=== PATIENT | male | born 1940 | race Caucasian/White ===

== ENCOUNTER 2017-03-03 09:00 | Outpatient (RCR) | payer MEDICARE ==
[~2017-03-03 09:00] MED LIST: ACET500T68 PO; AMOX-556 PO; AZIT-17 PO; CEPH500C24 PO; CHOL200074 PO; CITA-139 PO; CYCL-277 PO; FLU45SYR17 IM; FLUT16SP19 NS; FOLI-68 PO; GLUC100026 PO; IBUP-56 PO; IPRA3AMP21 IH; LEVO-85 PO; LISI5TAB25 PO; LUTE20TA PO; NAPR220T86 PO; OMEG-11 PO; OMEP-125 PO; OXYGENHOME INH; PNEU0.5D3 IM; PRED20TA6 PO; RANI-318 PO; VITA-198 PO
[2017-03-07] MEDS ORDERED: CLIN300C99 PO ×2 (15:47→15:56)
[2017-03-08] MEDS ORDERED: PRED20TA6 PO (14:39)
[2017-03-08] MEDS ORDERED: HYDR-385 PO (14:42)
[2017-03-16] MEDS ORDERED: PRED20TA6 PO (14:06)
== END 2017-03-16 ==
LOC: RESP 09:00
PROVIDERS: ATTEND Internal Medicine
DX: R09.02 Hypoxemia (principal); J84.9 Interstitial pulmonary disease, unspecified
CPT/HCPCS: 94618; G0239

== ENCOUNTER → 2017-03-07 | Outpatient (CLI) | payer MEDICARE ==
[~2017-03-07] MED LIST changes: +CLIN300C99 PO; +HYDR-385 PO
[2017-03-07 16:15] LABS: PLATELET COUNT, AUTOMATED 191 K/uL (150-450)
== END ==
LOC: LAB 15:55
PROVIDERS: ATTEND Internal Medicine
DX: L03.119 Cellulitis of unspecified part of limb (principal); I10 Essential (primary) hypertension
CPT/HCPCS: 36415; 82040; 82247; 82310; 82374; 82435; 82565; 82947; 84075; 84132; 84155; 84295; 84450; 84460; 84520; 84550; 85025; 85651; 86140

== ENCOUNTER → 2017-03-09 | Outpatient (CLI) | payer MEDICARE ==
[~2017-03-09] MED LIST changes: +GADOBENATE 529MG/1ML 15ML VIAL IVP ONE
--- NOTE | 2017-03-09 12:01 | RADIOLOGY IMAGING REPORT ---
[place] [facility] [place]IENT NAME: Codey Acevedo : 1940 MR: [id number] V: [id number] EXAM DATE: ORDERING PHYSICIAN: ABDIFATAH EVANS TECHNOLOGIST: Location: [facility] Patient: Codey Acevedo : 1940 Visit/Account:[id number] Date of Sevice: 03/09/2017 MRI right foot with and without contrast Indication: Erythema. Swelling. Cellulitis. Evaluate for osteomyelitis. Comparison: None available Technique: Sagittal and coronal STIR and T1-weighted fat saturated postcontrast, axial T1 weighted fa t saturated pre-and postcontrast, T1-weighted, and T2-weighted fat saturated images were obtained thr ough the right foot. A total of 15 mL IV MultiHance contrast was administered. Findings: Multiple sequences limited by patient motion. There are no plain film radiographs for review. There is skin thickening with subcutaneous edema along the medial margin of the first metatarsophalan geal joint. No discrete skin ulcer identified. Correlate with physical exam. No evidence of lobulated T2 signal to suggest a fluid collection. There are underlying changes of first metatarsophalangeal j oint osteoarthritis which are moderate in severity. Focal areas of subchondral edema and cyst formati on are seen. There is a slight hallux valgus suggested. Following the administration of gadolinium, t here is enhancement of the skin and subcutaneous tissues along the medial margin of the first MTP meliton nt in keeping with the history of cellulitis and erythema. No evidence of superficial or deep soft ti ssue abscess. There is some enhancement along the medial margin of the first metatarsal head which co rresponds to the areas of subchondral edema and cyst formation. This is almost certainly related to t he underlying osteoarthritis. A component of superimposed gout cannot be completely excluded. Osteomy elitis is felt to be unlikely. Changes of osteoarthritis involve additional metatarsophalangeal joints and interphalangeal joints of several toes. No evidence of forefoot stress reaction or stress fracture. The visualized midfoot mar row pattern is normal. Intrinsic musculature the foot is normal in bulk without fatty atrophy. There is a mild diffuse myosi tis present which is not specific and could reflect denervation changes in the appropriate setting. Flexor and extensor tendons appear intact. IMPRESSION: 1. MRI findings compatible with the stated history of cellulitis with soft tissue edema along the med ial margin of the right first metatarsophalangeal joint. No evidence of soft tissue abscess. 2. First metatarsophalangeal joint osteoarthritis with areas of subchondral edema and cyst formation with subtle post gadolinium enhancement. Enhancement is felt to be related to the underlying osteoart hritis. Osteomyelitis is felt to be unlikely. Gout, given the location of the soft tissue swelling an d erythema cannot be excluded, and clinical correlation is necessary. 3. Mild changes of forefoot osteoarthritis. 4. Nonspecific mild myositis pattern involving the intrinsic musculature the foot. This could be rela katya to denervation changes. Report Dictated By: Yanick Stockton at 03/09/2017 11:46 AM Report E-Signed By: Yanick Stockton at 03/09/2017 11:57 AM WSN:[id number]
== END ==
LOC: MRI 06:53
PROVIDERS: ATTEND Internal Medicine
DX: M19.071 Primary osteoarthritis, right ankle and foot (principal); M25.871 Other specified joint disorders, right ankle and foot
CPT/HCPCS: 73720; A9577

== ENCOUNTER → 2017-04-26 | Outpatient (RCR) | payer MEDICARE ==
[~2017-04-26] MED LIST changes: -GADOBENATE 529MG/1ML 15ML VIAL IVP ONE
== END ==
LOC: RESP 03-22 09:00
PROVIDERS: ATTEND Internal Medicine
DX: J84.9 Interstitial pulmonary disease, unspecified (principal); R09.02 Hypoxemia
CPT/HCPCS: 94667; G0239

== ENCOUNTER 2017-04-28 09:00 | Outpatient (RCR) | payer MEDICARE | END 2017-04-28 18:00 | disposition home or self-care (01) | LOC: RESP 09:00 | PROVIDERS: ATTEND Internal Medicine | DX: J84.9 Interstitial pulmonary disease, unspecified (principal); R09.02 Hypoxemia | CPT/HCPCS: 94618; G0239 ==

== ENCOUNTER → 2017-11-02 | Outpatient (CLI) | payer MEDICARE ==
[~2017-11-02] MED LIST changes: -CITA-139 PO; +CITA-145 PO; +CITA-157 PO; +IPRA3AMP10 IH; -IPRA3AMP21 IH
[2017-11-02 08:29] LABS: PLATELET COUNT, AUTOMATED 252 K/uL (150-450)
== END ==
LOC: LAB 08:14
PROVIDERS: ATTEND Internal Medicine
DX: J84.9 Interstitial pulmonary disease, unspecified (principal); E78.5 Hyperlipidemia, unspecified; R79.89 Other specified abnormal findings of blood chemistry; I10 Essential (primary) hypertension
CPT/HCPCS: 36415; 82040; 82247; 82310; 82374; 82435; 82465; 82565; 82607; 82947; 83036; 83718; 84075; 84132; 84155; 84295; 84443; 84450; 84460; 84478; 84520; 84550; 85025

== ENCOUNTER → 2017-12-12 | Outpatient (CLI) | payer MEDICARE ==
[~2017-12-12] MED LIST changes: +AMOX-559 PO
--- NOTE | 2017-12-12 17:33 | RADIOLOGY IMAGING REPORT ---
FACILITY: [facility] PATIENT NAME: Codey Acevedo : 1940 MR: [id number] V: [id number] EXAM DATE: ORDERING PHYSICIAN: MAYCOL MCKENNA TECHNOLOGIST: Location: [facility] - [place] Patient: Codey Acevedo : 1940 Visit/Account:[id number] Date of Sevice: 12/12/2017 CHEST W/O CONTRAST COMPARISON: Standard protocol chest CT April 05, 2016 HISTORY: Follow-up cough. Bilateral opacities.. TECHNIQUE: Axial CT of the chest without intravenous contrast, "interstitial lung disease protocol", including 3 mm axial contiguous reconstructions, limited 1 mm axial reconstructions, limited prone an d limited expiratory sections. Coronal and sagittal reformats. One of the following dose optimization techniques was utilized in the performance of this exam: auto mated exposure control; adjustment of the mA and/or kV according to patient size; or use of iterative reconstruction technique. Specific details can be referenced in the facility's radiology CT exam op erational policy. CT CHEST FINDINGS: CARDIAC: Mild stable cardiomegaly and mild coronary artery calcifications. There is no pericardial e ffusion. MEDIASTINUM/LYN: Unremarkable. No enlarged mediastinal nodes. No hilar adenopathy within the limi tations of a noncontrast study. VASCULATURE: Mild vascular calcifications. Difficult to assess the size of the aorta on noncontrast CT but the ascending aorta. Mildly aneurysmal, measuring 4.1 x 4.0 cm maximally. These measurements a re stable. CHEST WALL: Unremarkable. No mass or axillary adenopathy. LUNGS/PLEURA: Linear/reticular interstitial thickening in the upper lobes, left more than right ehsan lar distribution compared to previous. Associated mosaic attenuation/scattered groundglass opacities have diminished or resolved. No significant air trapping on expiratory scan. No clearing opacities on prone scans. No honeycombing. No pleural effusion or consolidation. BONES: Moderate lower cervical spine, multilevel thoracic spine degenerative change. No bony lesion or acute appearing fracture. LIMITED ABDOMEN: Mild vascular calcifications. OTHER: Negative. IMPRESSION: 1. Scattered groundglass opacities have resolved or almost completely resolved. These could have rep resented an acute component of interstitial lung disease or infection on the prior. Otherwise there a re scattered reticular opacities in both lungs which are nonspecific but stable. 2. Mild coronary artery calcifications. 3. 4.1 cm ascending aortic aneurysm is stable. Report Dictated By: Kris Martin at 12/12/2017 5:19 PM Report E-Signed By: Kris Martin at 12/12/2017 5:29 PM WSN:[id number]
== END ==
LOC: RAD 03:51
PROVIDERS: ATTEND Internal Medicine
DX: J84.9 Interstitial pulmonary disease, unspecified (principal); I25.84 Coronary atherosclerosis due to calcified coronary lesion; I71.9 Aortic aneurysm of unspecified site, without rupture
CPT/HCPCS: 71250; 94060; 94726; 94729

== ENCOUNTER → 2018-02-16 | Outpatient (CLI) | payer MEDICARE ==
[2018-02-16 08:32] LABS: PLATELET COUNT, AUTOMATED 250 K/uL (150-450)
[2018-02-16 10:06] LABS: LDL CHOLESTEROL 102 mg/dl
== END ==
LOC: LAB 08:12
PROVIDERS: ATTEND Internal Medicine
DX: E78.2 Mixed hyperlipidemia (principal); R09.02 Hypoxemia; D64.9 Anemia, unspecified; I10 Essential (primary) hypertension
CPT/HCPCS: 36415; 81001; 82040; 82247; 82310; 82374; 82435; 82465; 82565; 82728; 82746; 82947; 83540; 83550; 83718; 84075; 84132; 84155; 84295; 84443; 84450; 84460; 84478; 84520; 85025

== ENCOUNTER → 2018-06-12 | Outpatient (CLI) | payer MEDICARE ==
[~2018-06-12] MED LIST changes: +CYAN100088 PO; +LEVO25TA61 PO
[2018-06-12 07:47] LABS: PLATELET COUNT, AUTOMATED 224 K/uL (150-450)
[2018-06-12 08:05] LABS: LDL CHOLESTEROL 86 mg/dl
== END ==
LOC: LAB 07:30
PROVIDERS: ATTEND Internal Medicine
DX: D64.9 Anemia, unspecified (principal); F33.2 Major depressive disorder, recurrent severe without psychotic features; I10 Essential (primary) hypertension; K21.9 Gastro-esophageal reflux disease without esophagitis; E78.5 Hyperlipidemia, unspecified; E03.9 Hypothyroidism, unspecified; Z12.5 Encounter for screening for malignant neoplasm of prostate
CPT/HCPCS: 36415; 84443; 85025; G0103; 82040; 82247; 82310; 82374; 82435; 82465; 82565; 82947; 83718; 84075; 84132; 84153; 84155; 84295; 84450; 84460; 84478; 84520

== ENCOUNTER 2018-07-22 03:27 | Emergency (ER) | payer MEDICARE ==
[~2018-07-22 03:27] MED LIST changes: -OMEP-125 PO; +OMEP-126 PO
--- NOTE | 2018-07-22 03:31 | ER Report ---
History and Physical Time Seen By MD: 03:30 HPI/ROS CHIEF COMPLAINT: Shortness of breath, epigastric pain HISTORY OF PRESENT ILLNESS: 78-year-old male presents with difficulty breathing. He notes his severe epigastric pain and reflux symptoms. He notes burning in his chest. She has a history of interstitial lung disease is followed by pulm onology. His primary function tests have improved. He is due in fact to see Dr. Chen pulmonology on Tuesday morning at 8:30. Patient notes no infectious symptoms. He does have a persistent cough. He thinks that he worked himself up and is having esophageal spasm and reflux. He seems very anxious. He does have a history of anxiety. Patient notes no leg swelling or calf pain. REVIEW OF SYSTEMS: Respiratory: As above Cardiovascular: No chest pain, no palpitations. Gastrointestinal: As above Musculoskeletal: No back pain. Allergies: Coded Allergies: No Known Drug Allergies (Unverified , 08/10/14) Home Meds Active Scripts Cefuroxime Axetil (CEFUROXIME) 500 Mg Tablet, 500 MG PO BID for infection, #14 TAB Prov:DAVID CARTER DO 07/22/18 Cyclobenzaprine Hcl (CYCLOBENZAPRINE HCL) 5 Mg Tablet, 5 MG PO BID PRN for mus candido spasm, #40 TAB 3 Refills Prov:ABDIFATAH EVANS MD 06/16/18 Hydrocodone Bit/Acetaminophen (HYDROCODON-ACETAMINOPHEN 5-325) 1 Each Tablet, 1 EACH PO Q6H PRN for PAIN, #100 TAB Prov:ABDIFATAH EVANS MD 06/16/18 Ranitidine Hcl (RANITIDINE HCL) 150 Mg Tablet, 1 TAB PO HS, #90 TAB 3 Refills Prov:ABDIFATAH EVANS MD 02/23/18 Levothyroxine Sodium (LEVOTHYROXINE SODIUM) 25 Mcg Tablet, 25 MCG PO QDAY, #30 TAB 5 Refills Prov:ABDIFATAH EVANS MD 02/20/18 Omeprazole (OMEPRAZOLE) 20 Mg Capsule., 1 CAP PO QDAY, #90 CAP 3 Refills TAKE ONE CAPSULE BY MOUTH ONCE A DAY Prov:ABDIFATAH EVANS MD 01/25/18 Lisinopril (LISINOPRIL) 5 Mg Tablet, 1 TAB PO QDAY, #90 TAB 3 Refills Prov:ABDIFATAH EVANS MD 12/12/17 Citalopram Hydrobromide (CELEXA) 40 Mg Tablet, 40 MG PO QDAY, #90 TAB 3 Refills Prov:ABDIFATAH EVANS MD 08/24/17 Folic Acid (FOLIC ACID) 1 Mg Tablet, 1 MG PO QDAY, #30 TAB Prov:ABDIFATAH EVANS MD 01/12/17 Oxygen (OXYGEN) Inha, 2 L INH QDAY, #2 L Prov:ABDIFATAH EVANS MD 01/29/16 Reported Medications Cyanocobalamin (Vitamin B-12) (B-12) 1,000 Mcg Tablet.er, 1000 MCG PO QODAY 02/20/18 Acetaminophen (TYLENOL EXTRA STRENGTH) 500 Mg Tablet, 500 MG PO BID PRN for PAIN, TAB 01/11/17 Lutein (LUTEIN) 20 Mg Tablet, 20 MG PO DAILY 03/29/14 Cholecalciferol (Vitamin D3) (VITAMIN D-3) 2,000 Unit Capsule, 2000 UNIT PO BID, CAPSULE 03/29/14 Vitamin E Acetate (VITAMIN E) 1,000 Unit Capsule, 1000 UNIT PO DAILY, CAPSULE 03/29/14 Glucosamine Sulfate 2KCL (GLUCOSAMINE) 1,000 Mg Tablet, 1000 MG PO DAILY 03/29/14 Past Medical/Surgical History Past Medical History HEENT: Reports hx of: allergic rhinitis hearing deficit Cardiovascular: Reports hx of: hyperlipidemia hypertension Gastrointestinal: Reports hx of: GERD (EGD in 07/19. ) Integumentary: Reports hx of: psoriasis Psychiatric: Reports hx of: depression (feels the citalopram works very well for him. ) Past Surgical History HEENT: Reports hx of: cataract extraction (Mar 2014 Right eye, june 2104 left eye) tonsillectomy Genitourinary - Male: Reports hx of: vasectomy Reviewed Nurses Notes: Yes Old Medical Records Reviewed: Yes Hx Smoking: No Smoking Status: Never Smoker Exposure to Second Hand Smoke?: No Hx Substance Use Disorder: No Hx Alcohol Use: Yes Constitutional Vital Sign - Last 24 Hours 07/22/18 07/22/18 07/22/18 07/22/18 03:34 03:37 03:41 03:41 Temp 100.2 Pulse 80 78 80 Resp 18 16 16 B/P (MAP) 128/78 (95) 128/78 Pulse Ox 95 O2 Delivery Nasal Cannula 07/22/18 07/22/18 07/22/18 07/22/18 03:45 03:57 04:00 04:27 Pulse 80 84 Resp 15 30 B/P (MAP) 104/68 (80) Pulse Ox 97 92 O2 Flow Rate 2.0 07/22/18 07/22/18 07/22/18 07/22/18 04:30 04:57 05:00 05:00 Pulse 82 83 Resp 25 25 B/P (MAP) 115/58 (77) 108/67 (81) 108/67 (81) Pulse Ox 92 92 07/22/18 07/22/18 07/22/18 07/22/18 05:18 05:30 06:00 06:05 Temp 99.1 Pulse 82 85 Resp 23 B/P (MAP) 110/66 (81) 103/68 (80) Pulse Ox 92 Physical Exam General Appearance: The patient is alert, has no immediate need for airway protection and no current signs of toxicity. Vital signs stable, afebrile, pulse ox normal, a slightly pale appearing, skin warm and dry HEENT: Pupils equal and round no injection. TMs normal, oropharynx with mild er ythema, no exudate Respiratory: Chest is non tender, crease breath sounds bilaterally, faint Moi, wheezing Cardiac: regular rate and rhythm Gastrointestinal: Abdomen is soft, mild epigastric tenderness, no masses, bowel sounds normal. Musculoskeletal: Neck: Neck is supple and non tender. No lymphadenopathy, no JVD Extremities have full range of motion and are non tender. Skin: No rashes or lesions. DIFFERENTIAL DIAGNOSIS: After history and physical exam differential diagnosis was considered for shortness of breath including but not limited to pulmonary infectious process, COPD, asthma, pulmonary embolus and congestive heart failure. Additionally,chest pain including but not limited to myocardial ischemia, pericarditis pulmonary embolus, chest wall pain, pleural inflammation, GERD, and pulmonary infectious causes. Medical Decision Making Data Points Result Diagram: 07/22/1840907/22/18409 Laboratory Hematology Test 07/22/18 04:10 07/22/18 05:15 Red Blood Count 3.88 M/uL (4.00-5.60) Mean Corpuscular Volume 95.9 fL (80.0-96.0) Mean Corpuscular Hemoglobin 33.3 pg (26.0-33.0) Mean Corpuscular Hemoglobin Concent 34.7 g/dL (32.0-36.0) Red Cell Distribution Width 13.5 % (11.5-14.5) Mean Platelet Volume 7.3 fL (7.2-11.1) Neutrophils (%) (Auto) 65.3 % (39.4-72.5) Lymphocytes (%) (Auto) 23.7 % (17.6-49.6) Monocytes (%) (Auto) 8.8 % (4.1-12.4) Eosinophils (%) (Auto) 1.7 % (0.4-6.7) Basophils (%) (Auto) 0.5 % (0.3-1.4) Nucleated RBC Relative Count (auto) 0.1 /100WBC Neutrophils # (Auto) 7.7 K/uL (2.0-7.4) Lymphocytes # (Auto) 2.8 K/uL (1.3-3.6) Monocytes # (Auto) 1.0 K/uL (0.3-1.0) Eosinophils # (Auto) 0.2 K/uL (0.0-0.5) Basophils # (Auto) 0.1 K/uL (0.0-0.1) Nucleated RBC Absolute Count (auto) 0.01 K/uL D-Dimer Quantitative (PE/DVT) 0.85 ug/ml (0-0.50) Sodium Level 137 mmol/L (137-145) Potassium Level 4.8 mmol/L (3.5-5.0) Chloride Level 101 mmol/L (98-107) Carbon Dioxide Level 25 mmol/L (22-30) Blood Urea Nitrogen 21 mg/dl (9-21) Creatinine 1.00 mg/dl (0.66-1.25) Glomerular Filtration Rate Calc > 60.0 Random Glucose 115 mg/dl (75-110) Lactate 1.5 mmol/L (0.7-2.1) Calcium Level 9.3 mg/dl (8.4-10.2) Total Bilirubin 0.3 mg/dl (0.2-1.3) Aspartate Amino Transf (AST/SGOT) 32 U/L (0-35) Alanine Aminotransferase (ALT/SGPT) 46 U/L (0-56) Alkaline Phosphatase 105 U/L (0-126) Troponin I < 0.012 ng/ml B-Type Natriuretic Peptide 60 pg/ml (0-100) Total Protein 7.4 g/dl (6.3-8.2) Albumin 4.1 g/dl (3.5-5.0) Urine Color Yellow Urine Clarity Clear Urine pH 5.0 pH (4.8-9.5) Urine Specific [place] 1.012 Urine Protein Negative mg/dL (NEGATIVE) Urine Glucose (UA) Negative mg/dL (NEGATIVE) Urine Ketones Negative mg/dL (NEGATIVE) Urine Blood Negative (NEGATIVE) Urine Nitrite Negative (NEGATIVE) Urine Bilirubin Negative (NEGATIVE) Urine Urobilinogen Negative mg/dL (0.2-1.9) Urine Leukocyte Esterase Negative (NEGATIVE) Urine RBC 1 /HPF (0-2/HPF) Urine WBC 1 /HPF (0-5/HPF) Urine Squamous Epithelial Cells None /LPF (</=FEW) Urine Bacteria Negative /HPF (NONE-FEW) Urine Hyaline Casts Few /LPF (NONE-FEW) Urine Mucus None /HPF (NONE-FEW) Chemistry Test 07/22/18 04:10 07/22/18 05:15 White Blood Count 11.8 k/uL (4.5-11.0) Red Blood Count 3.88 M/uL (4.00-5.60) Hemoglobin 12.9 g/dL (14.0-18.0) Hematocrit 37.2 % (42.0-52.0) Mean Corpuscular Volume 95.9 fL (80.0-96.0) Mean Corpuscular Hemoglobin 33.3 pg (26.0-33.0) Mean Corpuscular Hemoglobin Concent 34.7 g/dL (32.0-36.0) Red Cell Distribution Width 13.5 % (11.5-14.5) Platelet Count 225 K/uL (150-450) Mean Platelet Volume 7.3 fL (7.2-11.1) Neutrophils (%) (Auto) 65.3 % (39.4-72.5) Lymphocytes (%) (Auto) 23.7 % (17.6-49.6) Monocytes (%) (Auto) 8.8 % (4.1-12.4) Eosinophils (%) (Auto) 1.7 % (0.4-6.7) Basophils (%) (Auto) 0.5 % (0.3-1.4) Nucleated RBC Relative Count (auto) 0.1 /100WBC Neutrophils # (Auto) 7.7 K/uL (2.0-7.4) Lymphocytes # (Auto) 2.8 K/uL (1.3-3.6) Monocytes # (Auto) 1.0 K/uL (0.3-1.0) Eosinophils # (Auto) 0.2 K/uL (0.0-0.5) Basophils # (Auto) 0.1 K/uL (0.0-0.1) Nucleated RBC Absolute Count (auto) 0.01 K/uL D-Dimer Quantitative (PE/DVT) 0.85 ug/ml (0-0.50) Glomerular Filtration Rate Calc > 60.0 Lactate 1.5 mmol/L (0.7-2.1) Calcium Level 9.3 mg/dl (8.4-10.2) Total Bilirubin 0.3 mg/dl (0.2-1.3) Aspartate Amino Transf (AST/SGOT) 32 U/L (0-35) Alanine Aminotransferase (ALT/SGPT) 46 U/L (0-56) Alkaline Phosphatase 105 U/L (0-126) Troponin I < 0.012 ng/ml B-Type Natriuretic Peptide 60 pg/ml (0-100) Total Protein 7.4 g/dl (6.3-8.2) Albumin 4.1 g/dl (3.5-5.0) Urine Color Yellow Urine Clarity Clear Urine pH 5.0 pH (4.8-9.5) Urine Specific [place] 1.012 Urine Protein Negative mg/dL (NEGATIVE) Urine Glucose (UA) Negative mg/dL (NEGATIVE) Urine Ketones Negative mg/dL (NEGATIVE) Urine Blood Negative (NEGATIVE) Urine Nitrite Negative (NEGATIVE) Urine Bilirubin Negative (NEGATIVE) Urine Urobilinogen Negative mg/dL (0.2-1.9) Urine Leukocyte Esterase Negative (NEGATIVE) Urine RBC 1 /HPF (0-2/HPF) Urine WBC 1 /HPF (0-5/HPF) Urine Squamous Epithelial Cells None /LPF (</=FEW) Urine Bacteria Negative /HPF (NONE-FEW) Urine Hyaline Casts Few /LPF (NONE-FEW) Urine Mucus None /HPF (NONE-FEW) Coagulation Test 07/22/18 04:10 D-Dimer Quantitative (PE/DVT) 0.85 ug/ml Urinalysis Test 07/22/18 05:15 Urine Color Yellow Urine Clarity Clear Urine pH 5.0 pH (4.8-9.5) Urine Specific [place] 1.012 Urine Protein Negative mg/dL (NEGATIVE) Urine Glucose (UA) Negative mg/dL (NEGATIVE) Urine Ketones Negative mg/dL (NEGATIVE) Urine Blood Negative (NEGATIVE) Urine Nitrite Negative (NEGATIVE) Urine Bilirubin Negative (NEGATIVE) Urine Urobilinogen Negative mg/dL (0.2-1.9) Urine Leukocyte Esterase Negative (NEGATIVE) Urine RBC 1 /HPF (0-2/HPF) Urine WBC 1 /HPF (0-5/HPF) Urine Squamous Epithelial Cells None /LPF (</=FEW) Urine Bacteria Negative /HPF (NONE-FEW) Urine Hyaline Casts Few /LPF (NONE-FEW) Urine Mucus None /HPF (NONE-FEW) Microbiology Microbiology Date/Time Source Procedure Growth Status 07/22/18 04:23 Blood Peripheral Draw Blood Culture - Preliminary NO GROWTH SO FAR, SET LATE. REINCUBATED Resulted 07/22/18 04:10 Blood Peripheral Draw Blood Culture - Preliminary NO GROWTH SO FAR, SET LATE. REINCUBATED Resulted EKG/Imaging EKG Interpretation 12 lead EK Rhythm: normal sinus rhythm with first-degree AV block [place]: Left axis deviation QRS: normal ST segments: normal, comparison to previous EKG dated 01/29/16, no significant change except for diffuse T-wave flattening. Compared to old Imaging X-ray: Two-view chest x-ray was obtained. I viewed the images myself on the PACS system. My interpretation of the images is: Chronic interstitial changes, no obvious infiltrate, but would be difficult to see.. The radiologist in terpretation had no clinically significant variation from this interpretation. ED Course/Re-evaluation Clinical Indication for ER IV: Hydration, IV Access ED Course Patient was admitted to an examination room. H&P was done. The differential di agnoses was considered. Patient presents with GERD symptoms, chest pain and shortness of breath. I think he suffering bronchospasm from acid reflux. He is treated with IV Solu-Medrol, DuoNeb, which improves his condition significantly. He is also treated with Zofran and fentanyl. His EKG is unchanged from previous. His troponin returned unremarkable. His d-dimer is mildly elevated 0.72. Do not think it warrants a CTA home and her angiogram. Patient has a low-grade fever for 100.3. His lactate is normal, suggesting no evidence of sepsis. No other source of infection was found. He does have chronic interstitial lung disease and maybe having a bit of pneumonia in its undetectable on the chest x-ray. Patient will be covered with Ceftin antibiotic. We did discuss the opportunity for a course of steroids. Patient is reluctant to proceed at this time. He'll be following up Dr. 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 Patient was also treated with a GI cocktail, which helped his GERD symptoms. He was also anxious and received Ativan. Patient reports feeling much improved. Decision to Disposition Date: Jul 22, 2018 Decision to Disposition Time: 05:22 Depart Departure Latest Vital Signs Vital Signs Date Time Temp Pulse Resp B/P (MAP) Pulse Ox O2 Delivery O2 Flow Rate FiO2 07/22/18 06:05 85 07/22/18 06:00 103/68 (80) 07/22/18 05:30 23 92 07/22/18 05:18 99.1 07/22/18 03:45 2.0 07/22/18 03:37 Nasal Cannula Impression: Primary Impression: Fever Additional Impressions: Dyspnea Epigastric pain GERD (gastroesophageal reflux disease) Interstitial lung disease Condition: Improved Disposition: HOME OR SELF-CARE Referrals: ABDIFATAH EVANS MD (PCP) New Scripts Cefuroxime Axetil (CEFUROXIME) 500 Mg Tablet 500 MG PO BID for infection, #14 TAB Prov: DAVID CARTER DO 07/22/18 Patient Instructions: Dyspnea (ED), Fever in Adults (ED) Additional Instructions: Follow-up with your metal refiner as planned on Tuesday Problem Qualifiers Primary Impression: Fever Fever type: unspecified Qualified Codes: R50.9 - Fever, unspecified Additional Impressions: Dyspnea Dyspnea type: unspecified Qualified Codes: R06.00 - Dyspnea, unspecified GERD (gastroesophageal reflux disease) Esophagitis presence: esophagitis presence not specified Qualified Codes: K21.9 - Gastro-esophageal reflux disease without esophagitis DAVID CARTER DO Jul 22, 2018 03:31
[2018-07-22] MEDS ORDERED: methylPREDNIS SUCC 125 MG/2ML IVP ONE (03:40)
[2018-07-22] MEDS ORDERED: ALBUTEROL/IPRATROPIUM 3 ML NEB NEB ONE (03:40)
[2018-07-22] MEDS ORDERED: fentaNYL CITR 100 MCG/2 ML AMP IVP ONE (03:40)
[2018-07-22] MEDS ORDERED: ONDANSETRON 4 MG/2 ML VIAL IVP ONE (03:40)
[2018-07-22] MEDS ORDERED: ASPIRIN 81 MG CHEW PO ONE (03:40)
--- NOTE | 2018-07-22 04:16 | EKG ---
FACILITY: [facility] - [place] PATIENT NAME: DEANNA PERSON : [id number] MR: [id number] V: [id number] EXAM DATE: ORDERING PHYSICIAN: DAVID CARTER TECHNOLOGIST: JOSELINE Test Reason : DYSPNEA Blood Pressure : / mmHG Vent. Rate : 078 BPM Atrial Rate : 078 BPM P-R Int : 294 ms QRS Dur : 100 ms QT Int : 414 ms P-R-T Axes : 079 -36 016 degrees QTc Int : 471 ms Sinus rhythm with 1st degree AV block Left axis deviation Nonspecific interventricular conduction delay Abnormal ECG Confirmed by GASTON CANCINO ([id number]) on 07/22/2018 6:29:40 AM Referred By: Confirmed By:GASTON CANCINO
[2018-07-22 04:31] LABS: PLATELET COUNT, AUTOMATED 225 K/uL (150-450)
[2018-07-22] MEDS ORDERED: MAG HYD/AL HYD/SIMETH 30ML UDC PO ONE (04:50)
[2018-07-22] MEDS ORDERED: LIDOCAINE 2% VISC SLN 15ML UDC PO ONE (04:50)
--- NOTE | 2018-07-22 04:59 | RADIOLOGY IMAGING REPORT ---
FACILITY: [facility] - [place] PATIENT NAME: Codey Acevedo : 1940 MR: [id number] V: [id number] EXAM DATE: ORDERING PHYSICIAN: DAVID CARTER TECHNOLOGIST: Location: [facility] - [place] Patient: Codey Acevedo : 1940 Visit/Account:[id number] Date of Sevice: 07/22/2018 2 VIEWS CHEST INDICATION: Fever and dyspnea. Chest pain. COMPARISON: CT chest dated December 12, 2017 FINDINGS: Heart size within normal limits. Calcification within the aortic knob. Chronic interstitial opacities without definitive acute on chronic disease although cannot be exclude d. Low lung volumes. There is no pneumothorax or pleural effusion. IMPRESSION: Chronic interstitial opacities without definitive acute on chronic disease although cannot be exclude d. Low lung volumes. Report Dictated By: Madi Black MD at 07/22/2018 4:53 AM Report E-Signed By: Madi Black MD at 07/22/2018 4:54 AM WSN:[id number]
[2018-07-22] MEDS ORDERED: CEFU500T10 PO (05:25)
[2018-07-22 06:00] VITALS: BP 103/68
[2018-07-22] MEDS ORDERED: CEFUROXIME AXETIL 250 MG TAB PO ONE (06:00)
== END 2018-07-22 06:25 | disposition home or self-care (01) ==
LOC: ER 03:35
DX: R50.9 Fever, unspecified (principal); R06.02 Shortness of breath; K21.9 Gastro-esophageal reflux disease without esophagitis; J84.9 Interstitial pulmonary disease, unspecified
CPT/HCPCS: 36415; 71046; 81001; 83605; 83880; 84484; 85025; 85379; 87040; 93005; 94640; 96374; 96375; 99284; A9270; J2405; J2930; J3010; J7620; 82040; 82247; 82310; 82374; 82435; 82565; 82947; 84075; 84132; 84155; 84295; 84450; 84460; 84520

== ENCOUNTER 2018-09-19 03:22 | Observation (INO) | payer MEDICARE ==
[~2018-09-19] VITALS: Ht 175.3 cm; Wt 92.5 kg
[~2018-09-19 03:22] MED LIST changes: -ALBU8.5H IH; -RIVA20TA PO
[2018-09-19] MEDS ORDERED: ALBU8.5H IH (03:30)
--- NOTE | 2018-09-19 03:33 | ER Report ---
History and Physical Time Seen By : 03:29 Hx. of Stated Complaint: PT WOKE UP AT 1AM WITH SHARP PAIN IN STOMACH THAT RADIATES TO HIS CHEST HPI/ROS CHIEF COMPLAINT: chest pain HISTORY OF PRESENT ILLNESS: This is an 78 year old male. He was feeling severe esophageal spasms tonight wit reflux. Also with some chest pain at the same time. No history of heart problems in the past. He does have pulmonary fibrosis and is on chronic oxygen therapy for this. Took a baby aspirin. EMS gave 3 more and a dose of nitroglycerin. Patient is not having much pain. Still some lower esophageal spasming. Denies any further chest pain. Having some nausea. No fevers or chills. No increased cough. EMS noted that he is in atrial fibril lation, and he has never had this in the past. His did and was on Sotolol and Xarelto. Allergies: Coded Allergies: No Known Drug Allergies (Unverified , 08/10/14) Home Meds Active Scripts Levothyroxine Sodium (LEVOTHYROXINE SODIUM) 25 Mcg Tablet, 25 MCG PO QDAY, #90 TAB 3 Refills Prov:ABDIFATAH EVANS MD 08/22/18 Cyclobenzaprine Hcl (CYCLOBENZAPRINE HCL) 5 Mg Tablet, 5 MG PO BID PRN for muscle spasm, #40 TAB 3 Refills Prov:ABDIFATAH EVANS MD 06/16/18 Hydrocodone Bit/Acetaminophen (HYDROCODON-ACETAMINOPHEN 5-325) 1 Each Tablet, 1 EACH PO Q6H PRN for PAIN, #100 TAB Prov:ABDIFATAH EVANS MD 06/16/18 Ranitidine Hcl (RANITIDINE HCL) 150 Mg Tablet, 1 TAB PO HS, #90 TAB 3 Refills Prov:ABDIFATAH EVANS MD 02/23/18 Omeprazole (OMEPRAZOLE) 20 Mg Capsule.dr, 1 CAP PO QDAY, #90 CAP 3 Refills TAKE ONE CAPSULE BY MOUTH ONCE A DAY Prov:ABDIFATAH EVANS MD 01/25/18 Lisinopril (LISINOPRIL) 5 Mg Tablet, 1 TAB PO QDAY, #90 TAB 3 Refills Prov:ABDIFATAH EVANS MD 12/12/17 Citalopram Hydrobromide (CELEXA) 40 Mg Tablet, 40 MG PO QDAY, #90 TAB 3 Refills Prov:ABDIFATAH EVANS MD 08/24/17 Folic Acid (FOLIC ACID) 1 Mg Tablet, 1 MG PO QDAY, #30 TAB Prov:ABDIFATAH EVANS MD 01/12/17 Oxygen (OXYGEN) Inha, 2 L INH QDAY, #2 L Prov:ABDIFATAH EVANS MD 01/29/16 Reported Medications Albuterol Sulfate 90 Mcg/Act (PROAIR HFA 90 MCG/ACT) 8.5 Gm Hfa.aer.ad, 1-2 PUFF IH Q4H PRN for SHORTNESS OF BREATH, INHALER 09/19/18 Acetaminophen (TYLENOL EXTRA STRENGTH) 500 Mg Tablet, 500 MG PO BID PRN for PAIN, TAB 01/11/17 Lutein (LUTEIN) 20 Mg Tablet, 20 MG PO DAILY 03/29/14 Cholecalciferol (Vitamin D3) (VITAMIN D-3) 2,000 Unit Capsule, 2000 UNIT PO BID, CAPSULE 03/29/14 Glucosamine Sulfate 2KCL (GLUCOSAMINE) 1,000 Mg Tablet, 1500 MG PO DAILY 03/29/14 Discontinued Reported Medications Cyanocobalamin (Vitamin B-12) (B-12) 1,000 Mcg Tablet.er, 1000 MCG PO QODAY 02/20/18 Vitamin E Acetate (VITAMIN E) 1,000 Unit Capsule, 1000 UNIT PO DAILY, CAPSULE 03/29/14 Discontinued Scripts Cefuroxime Axetil (CEFUROXIME) 500 Mg Tablet, 500 MG PO BID for infection, #14 TAB Prov:DAVID CARTER DO 07/22/18 Reviewed Nurses Notes: Yes Hx Smoking: No Smoking Status: Never Smoker Exposure to Second Hand Smoke?: No Hx Substance Use Disorder: No Hx Alcohol Use: Yes Constitutional Vital Sign - Last 24 Hours 09/19/18 09/19/18 09/19/18 09/19/18 03:22 03:22 03:22 03:30 Pulse 73 107 Resp 15 16 B/P (MAP) 149/120 110/62 (78) Pulse Ox 95 93 O2 Flow Rate 2.0 09/19/18 09/19/18 09/19/18 09/19/18 03:52 04:00 04:30 04:52 Pulse 151 74 Resp 12 22 B/P (MAP) 91/56 (68) 95/55 (68) Pulse Ox 84 95 09/19/18 09/19/18 09/19/18 09/19/18 06:45 07:00 07:15 07:30 Pulse 53 53 Resp 12 13 B/P (MAP) 102/62 (75) 98/56 (70) Pulse Ox 96 96 09/19/18 07:45 Pulse 53 Resp 13 Pulse Ox 91 Physical Exam General Appearance: The patient is alert. No acute distress. Eyes: Pupils are equal, round. No pallor, injection or icterus. ENT: Mucous membranes are moist. Normal oral mucosa. Posterior oropharynx is normal. Neck: Supple and non tender. Respiratory: Lungs with some coarse rales, consistent with interstitial lung disease. No wheezing. There are no retractions or accessory muscle use. Cardiovascular: Irregularly irregular rhythm, but running about 90-110. No murmurs, gallops or rubs. Normal capillary refill. Gastrointestinal: Abdomen is soft and some tenderness in epigastric area. Nondistended. Normal active bowel sounds. Neurological: Alert and oriented x3. No focal neurologic deficits Skin: Warm and dry. No rashes. Musculoskeletal: Extremities are nontender. No tenderness in palpation of the cervical, thoracic and lumbar spine. DIFFERENTIAL DIAGNOSIS: After history and physical exam, differential diagnosis was considered for chest pain including but not limited to myocardial ischemia, pericarditis pulmonary embolus, chest wall pain, pleural inflammation and pul monary infectious causes. Also with esophageal spasming. We'll give Protonix and GI cocktail for this. Also with new onset atrial fibrillation Medical Decision Making Data Points Result Diagram: 09/19/18 0310 09/19/18 1306 Laboratory Hematology Test 09/19/18 03:10 White Blood Count 9.3 k/uL (4.5-11.0) Red Blood Count 4.07 M/uL (4.00-5.60) Hemoglobin 13.8 g/dL (14.0-18.0) L Hematocrit 38.9 % (42.0-52.0) L Mean Corpuscular Volume 95.7 fL (80.0-96.0) Mean Corpuscular Hemoglobin 33.9 pg (26.0-33.0) H Mean Corpuscular Hemoglobin Concent 35.4 g/dL (32.0-36.0) Red Cell Distribution Width 13.2 % (11.5-14.5) Platelet Count 224 K/uL (150-450) Mean Platelet Volume 7.3 fL (7.2-11.1) Neutrophils (%) (Auto) 69.1 % (39.4-72.5) Lymphocytes (%) (Auto) 20.8 % (17.6-49.6) Monocytes (%) (Auto) 8.7 % (4.1-12.4) Eosinophils (%) (Auto) 1.0 % (0.4-6.7) Basophils (%) (Auto) 0.4 % (0.3-1.4) Nucleated RBC Relative Count (auto) 0.0 /100WBC Neutrophils # (Auto) 6.4 K/uL (2.0-7.4) Lymphocytes # (Auto) 1.9 K/uL (1.3-3.6) Monocytes # (Auto) 0.8 K/uL (0.3-1.0) Eosinophils # (Auto) 0.1 K/uL (0.0-0.5) Basophils # (Auto) 0.0 K/uL (0.0-0.1) Nucleated RBC Absolute Count (auto) 0.00 K/uL Chemistry Test 09/19/18 03:10 09/19/18 06:04 B-Type Natriuretic Peptide 73 pg/ml (0-100) Thyroid Stimulating Hormone (TSH) 4.29 uIU/ml (0.46-4.68) Troponin I < 0.012 ng/ml EKG/Imaging Imaging 12 lead EK hrs. Rhythm: Atrial fibrillation, rate 100 [place]: Left axis deviation QRS: Prolonged QT ST segments: Otherwise nonspecific 12 lead EKG: At 0451 hrs. Rhythm: Atrial fibrillation, rate 60 to Otherwise unchanged ED Course/Re-evaluation Clinical Indication for ER IV: Hydration, IV Access ED Course Initial evaluation done showing H fibrillation with slight increased rate. He would have brief episodes were going to normal sinus rhythm, usually heart rate of about 60. Sometimes this would be a sinus tachycardia with a rate about 120. Downgoing back into atrial fibrillation. Tried giving diltiazem 10 mg IV push, significant change with bradycardia. Blood pressures remained stable. We were going to go ahead and give him an oral dose of an extended release form however because of the patient's significant drop in heart rate with this we elected to hold off and watch for a while. Troponin negative Decision to Disposition Date: Sep 19, 2018 Decision to Disposition Time: 07:25 Depart Departure Latest Vital Signs Vital Signs Date Time Temp Pulse Resp B/P (MAP) Pulse Ox O2 Delivery O2 Flow Rate FiO2 09/19/18 07:45 53 13 91 09/19/18 07:30 98/56 (70) 09/19/18 03:22 2.0 Impression: Primary Impression: PAROXYSMAL ATRIAL FIBRILLATION Condition: Improved Disposition: Admitted from ER Referrals: ABDIFATAH EVANS MD (PCP) KASIE STYLES MD Sep 19, 2018 03:33
[2018-09-19] MEDS ORDERED: PANTOPRAZOLE SOD 40 MG IV VIAL IVP ONE (03:35)
[2018-09-19] MEDS ORDERED: MORPHINE 4 MG/ML SDV IVP ONE (03:35)
[2018-09-19] MEDS ORDERED: ONDANSETRON 4 MG/2 ML VIAL IVP ONE ×2 (03:35→04:20)
--- NOTE | 2018-09-19 03:42 | EKG ---
[place] [facility] [place] NAME[place] DEANNA PERSON : [id number] MR: [id number] V: [id number] EXAM DATE: ORDERING PHYSICIAN: KASIE STYLES TECHNOLOGIST: MATT Test Reason : CP Blood Pressure : / mmHG Vent. Rate : 100 BPM Atrial Rate : 113 BPM P-R Int : 000 ms QRS Dur : 100 ms QT Int : 404 ms P-R-T Axes : 000 -40 036 degrees QTc Int : 521 ms Atrial fibrillation Left axis deviation Prolonged QT Baseline variation. No previous ECGs available Confirmed by VERONICA CADE ([id number]) on 09/19/2018 6:04:53 AM Referred By: STEPHANI Confirmed By:VERONICA CADE
[2018-09-19 03:43] LABS: PLATELET COUNT, AUTOMATED 224 K/uL (150-450)
--- NOTE | 2018-09-19 03:57 | RADIOLOGY IMAGING REPORT ---
FACILITY: [facility] PATIENT NAME: Codey Acevedo : 1940 MR: [id number] V: [id number] EXAM DATE: ORDERING PHYSICIAN: KASIE STYLES TECHNOLOGIST: Location: [facility] Patient: Codey Acevedo : 1940 Visit/Account:[id number] Date of Sevice: 09/19/2018 AP CHEST 09/19/2018 3:33 AM. INDICATION: Chest Pain COMPARISON: 07/22/2018. FINDINGS: Lungs are well-expanded. There is no new consolidation. Diffuse chronic appearing interstitial navdeep ngs similar to prior given differences in technique. No pleural effusion or pneumothorax. Heart size is normal. IMPRESSION: Chronic findings with no apparent acute abnormality. Report Dictated By: Jones Burton MD at 09/19/2018 3:47 AM Report E-Signed By: Jones Burton MD at 09/19/2018 3:48 AM WSN:[id number]
[2018-09-19] MEDS ORDERED: DILTIAZEM 5 MG/ML 5ML IVPUSH IVP ONE (04:05)
[2018-09-19] MEDS ORDERED: ATRO/SCOPOL/HYOSCY/PB 5 ML ELX PO ONE (04:20)
[2018-09-19] MEDS ORDERED: LIDOCAINE 2% VISC SLN 15ML UDC PO ONE (04:20)
[2018-09-19] MEDS ORDERED: MAG HYD/AL HYD/SIMETH 30ML UDC PO ONE (04:20)
[2018-09-19] MEDS ORDERED: APAP/HYDROCODONE 325/5 TAB PO ONE (05:25)
[2018-09-19] MEDS ORDERED: NS(*) 0.9% 1000 ML BAG 1,000 ML IV ONE (05:40)
--- NOTE | 2018-09-19 05:49 | EKG ---
FACILITY: [facility] PATIENT NAME: DEANNA PERSON : [id number] MR: [id number] V: [id number] EXAM DATE: ORDERING PHYSICIAN: KASIE STYLES TECHNOLOGIST: MATT Test Reason : CP REPEAT Blood Pressure : / mmHG Vent. Rate : 062 BPM Atrial Rate : 065 BPM P-R Int : 000 ms QRS Dur : 098 ms QT Int : 436 ms P-R-T Axes : 000 -33 -08 degrees QTc Int : 442 ms Atrial fibrillation Left axis deviation Non-specific T changes. When compared with ECG of 19-SEP-2018 03:16, Vent. rate has decreased BY 38 BPM QT has shortened Confirmed by VERONICA CADE ([id number]) on 09/19/2018 6:05:57 AM Referred By: STEPHANI Confirmed By:VERONICA CADE
[2018-09-19] MEDS ORDERED: INFLUENZA VIRUS VAC 0.5ML SYR IM ONLY ONE (07:55)
[2018-09-19] MEDS ORDERED: APAP/HYDROCODONE 325/5 TAB PO PRN (07:55)
[2018-09-19] MEDS ORDERED: ALBUTEROL 2.5 MG/3 ML NEB NEB PRN (07:55)
[2018-09-19 08:46] VITALS: BP 117/75
[2018-09-19] MEDS ORDERED: DILTIAZEM CD 120 MG CAPCR PO SCH (09:00)
[2018-09-19] MEDS ORDERED: CYCLOBENZAPRINE HCL 10 MG TAB PO SCH (09:00)
--- NOTE | 2018-09-19 09:32 | History & Physical ---
History of Present Illness History of Present Illness 78yo male with a h/o GERD and interstitial lung disease who came to the ER for chest pain related to esophageal spasm. At about 12:30 this morning he developed 7-8/10 pain across his upper abdomen and lower chest. He had a nausea and diaphoresis with it. No SOB. He was given NTG in the ambulance that helped some. In the ER, was given a GI cocktail that nearly resolved the pain. He has had 2 other episodes of severe esophageal spasm in his life. His troponin has been negative x2. He was found to be in atrial fibrillation with a varying rate of 60-120bpm. It also appeared as if he was going in and out of sinus rhythm. He was in the ER in July for a less severe episode and was in sinus rhythm. He was given 10mg IV diltiazem and it lowered his HR into the 40's. He never was symptomatic. No LE edema, orthopnea. History Problems: (1) Osteoarthritis Status: Acute (2) Hypothyroidism Status: Acute (3) Interstitial lung disease Status: Chronic (4) GERD (gastroesophageal reflux disease) Status: Chronic (5) Depressive disorder, not elsewhere classified Status: Acute Home Meds Active Scripts Levothyroxine Sodium (LEVOTHYROXINE SODIUM) 25 Mcg Tablet, 25 MCG PO QDAY, #90 TAB 3 Refills Prov:ABDIFATAH EVANS MD 08/22/18 Cefuroxime Axetil (CEFUROXIME) 500 Mg Tablet, 500 MG PO BID for infection, #14 TAB Prov:DAVID CARTER DO 07/22/18 Cyclobenzaprine Hcl (CYCLOBENZAPRINE HCL) 5 Mg Tablet, 5 MG PO BID PRN for muscle spasm, #40 TAB 3 Refills Prov:ABDIFATAH EVANS MD 06/16/18 Hydrocodone Bit/Acetaminophen (HYDROCODON-ACETAMINOPHEN 5-325) 1 Each Tablet, 1 EACH PO Q6H PRN for PAIN, #100 TAB Prov:ABDIFATAH EVANS MD 06/16/18 Ranitidine Hcl (RANITIDINE HCL) 150 Mg Tablet, 1 TAB PO HS, #90 TAB 3 Refills Prov:ABDIFATAH EVANS MD 02/23/18 Omeprazole (OMEPRAZOLE) 20 Mg Capsule.dr, 1 CAP PO QDAY, #90 CAP 3 Refills TAKE ONE CAPSULE BY MOUTH ONCE A DAY Prov:ABDIFATAH EVANS MD 01/25/18 Lisinopril (LISINOPRIL) 5 Mg Tablet, 1 TAB PO QDAY, #90 TAB 3 Refills Prov:ABDIFATAH EVANS MD 12/12/17 Citalopram Hydrobromide (CELEXA) 40 Mg Tablet, 40 MG PO QDAY, #90 TAB 3 Refills Prov:ABDIFATAH EVANS MD 08/24/17 Folic Acid (FOLIC ACID) 1 Mg Tablet, 1 MG PO QDAY, #30 TAB Prov:ABDIFATAH EVANS MD 01/12/17 Oxygen (OXYGEN) Inha, 2 L INH QDAY, #2 L Prov:ABDIFATAH EVANS MD 01/29/16 Reported Medications Albuterol Sulfate 90 Mcg/Act (PROAIR HFA 90 MCG/ACT) 8.5 Gm Hfa.aer.ad, 1-2 PUFF IH 3-4XD, INHALER 09/19/18 Cyanocobalamin (Vitamin B-12) (B-12) 1,000 Mcg Tablet.er, 1000 MCG PO QODAY 02/20/18 Acetaminophen (TYLENOL EXTRA STRENGTH) 500 Mg Tablet, 500 MG PO BID PRN for PAIN, TAB 01/11/17 Lutein (LUTEIN) 20 Mg Tablet, 20 MG PO DAILY 03/29/14 Cholecalciferol (Vitamin D3) (VITAMIN D-3) 2,000 Unit Capsule, 2000 UNIT PO BID, CAPSULE 03/29/14 Vitamin E Acetate (VITAMIN E) 1,000 Unit Capsule, 1000 UNIT PO DAILY, CAPSULE 03/29/14 Glucosamine Sulfate 2KCL (GLUCOSAMINE) 1,000 Mg Tablet, 1000 MG PO DAILY 03/29/14 Allergies: Coded Allergies: No Known Drug Allergies (Unverified , 08/10/14) Patient History: Colitis MOTHER, , Age:83 Marcus disease DAUGHTER FH: Alzheimer's disease SISTER, FH: coronary artery disease FATHER, , Age:96 FH: depression FATHER, , Age:96 FH: peptic ulcer disease MOTHER, , Age:83 Psoriasis SISTER Other Social/Family Hx Lives alone. within the last year. Drinks about 3 bourbons nightly. Denies problems with tremors when stopping drinking. Hx Smoking: No Smoking Status: Never Smoker Exposure to Second Hand Smoke?: No Caffeine Intake: Coffee Caffeine/Cups Per Day: 1 Hx Alcohol Use: Yes Hx Substance Use Disorder: No Review of Systems All Systems Reviewed/Normal: Yes, Except as Noted Exam Vital Signs Vital Signs Date Time Temp Pulse Resp B/P (MAP) Pulse Ox O2 Delivery O2 Flow Rate FiO2 09/19/18 09:11 97 09/19/18 08:46 97.2 67 16 117/75 (89) Nasal Cannula 2.5 General Appearance: Alert, Awake, No Acute Distress Neuro: No Gross deficits Eyes: PERRLA ENT: Moist Mucous Membranes Cardiovascular: Other (Distant heart tones, so difficult to distinguish regularity or any m/r/g) Respiratory: Clear to Auscultation GI: Abd Soft and Non-Tender Extremities: No Edema Integumentary: No Jaundice, No Cyanosis Medical Decision Making Data Points Result Diagram: 09/19/1830909/19/18309 Item Value Date Time Neutrophils (%) (Auto) 69.1 % 09/19/18309 Lymphocytes (%) (Auto) 20.8 % 09/19/18309 Eosinophils (%) (Auto) 1.0 % 09/19/18309 Monocytes (%) (Auto) 8.7 % 09/19/18309 Troponin I < 0.012 ng/ml 09/19/18603 Troponin I < 0.012 ng/ml 09/19/18309 B-Type Natriuretic Peptide 73 pg/ml 09/19/18309 Total Bilirubin 0.8 mg/dl 09/19/18309 Alanine Aminotransferase (ALT/SGPT) 151 U/L H 09/19/18309 Aspartate Amino Transf (AST/SGOT) 226 U/L H 09/19/18309 Alkaline Phosphatase 103 U/L 09/19/18309 EKG / Imaging EKG Interpretation Vent. Rate : 100 BPM Atrial Rate : 113 BPM P-R Int : 000 ms QRS Dur : 100 ms QT Int : 404 ms P-R-T Axes : 000 -40 036 degrees QTc Int : 521 ms Atrial fibrillation Left axis deviation Prolonged QT Baseline variation. No previous ECGs available Confirmed by VERONICA CADE ([id number]) on 09/19/2018 6:04:53 AM Vent. Rate : 078 BPM Atrial Rate : 078 BPM P-R Int : 294 ms QRS Dur : 100 ms QT Int : 414 ms P-R-T Axes : 079 -36 016 degrees QTc Int : 471 ms Sinus rhythm with 1st degree AV block Left axis deviation Nonspecific interventricular conduction delay Abnormal ECG Confirmed by GASTON CANCINO ([id number]) on 07/22/2018 6:29:40 AM Assessment and Plan Problems: (1) Atrial fibrillation Status: Acute Assessment & Plan: He presented with asymptomatic atrial fibrillation. He was in sinus rhythm by ECG on 07/24. His rates in the ER were from 60-120bpm, but dropped to the 40's with 10mg of IV diltiazem. Will watch on telemetry, get an echo, check TSH, and start Xarelto. (2) GERD (gastroesophageal reflux disease) Status: Chronic Assessment & Plan: He presented to the ER with esophageal spasm that eased with NTG and resolved with a GI cocktail. He is chronically on omeprazole and nightly ranitidine. He will be on Protonix in the hospital and will increase the ranitidine to bid to see if it helps the flares. (3) Depression, endogenous Status: Acute Assessment & Plan: Continue chronic Celexa. (4) Essential hypertension Status: Chronic Assessment & Plan: Hold chronic lisinopril. (5) Osteoarthritis Status: Acute Assessment & Plan: Continue chronic prn Flexeril and Vicodin. (6) Interstitial lung disease Status: Chronic Assessment & Plan: Chronically on O2. Copies to: ABDIFATAH EVANS MD ; Venous Thromboembolism Antithrombotics Is Pt On Any Antithrombotics?: No Exam Sepsis Risk: No Definite Risk KASEY OSBORN MD Sep 19, 2018 09:32
[2018-09-19] MEDS: RANITIDINE HCL 150 MG TAB PO SCH ×2 (09:44→20:49)
[2018-09-19] MEDS: LEVOTHYROXINE SOD 0.025 MG TAB PO SCH (09:44)
[2018-09-19] MEDS: RIVAROXABAN 10 MG TAB PO SCH (09:44)
[2018-09-19] MEDS: PANTOPRAZOLE SOD 40 MG TABEC PO SCH (09:44)
[2018-09-19] MEDS: CITALOPRAM HYDROBROM 20 MG TAB PO SCH (09:44)
[2018-09-19 10:46] VITALS: BP 95/67
[2018-09-19] MEDS ORDERED: CYCLOBENZAPRINE HCL 10 MG TAB PO PRN (13:45)
[2018-09-19 14:30] VITALS: BP 95/79
--- NOTE | 2018-09-19 17:55 | Miscellaneous Provider Note ---
Miscellaneous Provider Note Note Item Value Date Time Aspartate Amino Transf (AST/SGOT) 226 U/L H 09/19/18 0310 Alanine Aminotransferase (ALT/SGPT) 151 U/L H 09/19/18 0310 Aspartate Amino Transf (AST/SGOT) 32 U/L 07/22/18 0410 Alanine Aminotransferase (ALT/SGPT) 46 U/L 07/22/18 0410 Aspartate Amino Transf (AST/SGOT) 583 U/L H 09/19/18 1306 Alanine Aminotransferase (ALT/SGPT) 509 U/L H 09/19/18 1306 Total Bilirubin 0.8 mg/dl 09/19/18 0310 Total Bilirubin 1.0 mg/dl 09/19/18 1306 Alkaline Phosphatase 103 U/L 09/19/18 0310 Alkaline Phosphatase 100 U/L 09/19/18 1306 Echo showed a preserved EF, but an enlarged LA. He is feeling well. Heart rate has been in the 60's and appears to be in atrial fibrillation. LFT's continue to increase and he his without any symptoms and has benign exam. Will check RUQ US, Hepatitis panel, CPK, APAP, INR (which might be elevated from the Xarelto). He reports only occasional APAP use outside of the 325mg in the Vicodin that he takes about 2x/day. He does drink alcohol daily. KASEY OSBORN MD Sep 19, 2018 17:55
[2018-09-19 18:49] VITALS: BP 107/69
[2018-09-19 18:56] LABS: INR 1.42
[2018-09-19] MEDS ORDERED: CALCIUM CARBONATE 500 MG CHEW PO PRN (22:45)
[2018-09-19 23:51] VITALS: BP 95/79
[2018-09-20] MEDS: LEVOTHYROXINE SOD 0.025 MG TAB PO SCH (05:42)
--- NOTE | 2018-09-20 06:22 | EKG ---
FACILITY: [facility] PATIENT NAME: DEANNA PERSON : [id number] MR: [id number] V: [id number] EXAM DATE: ORDERING PHYSICIAN: KASEY OSBORN TECHNOLOGIST: MATT Test Reason : A FIB Blood Pressure : / mmHG Vent. Rate : 056 BPM Atrial Rate : 056 BPM P-R Int : 298 ms QRS Dur : 092 ms QT Int : 448 ms P-R-T Axes : 050 -29 -14 degrees QTc Int : 432 ms Sinus bradycardia with 1st degree AV block T inversion consistent with inferior ischemia vs normal variant Sinus rhythm has replaced atrial fibrillation Confirmed by KASEY OSBORN ([id number]) on 09/20/2018 6:48:19 AM Referred By: ANURAG Confirmed By:KASEY OSBORN
[2018-09-20 07:24] VITALS: BP 91/63
--- NOTE | 2018-09-20 09:00 | RADIOLOGY IMAGING REPORT ---
FACILITY: [facility] PATIENT NAME: Codey Acevedo : 1940 MR: [id number] V: [id number] EXAM DATE: ORDERING PHYSICIAN: KASEY OSBORN TECHNOLOGIST: [place] [facility] [place] Codey Acevedo : 1940 Visit/Account:[id number] Date of Sevice: 09/19/2018 LIVER HISTORY: elevated LFT LIVER EXAMINATION: Abdominal ultrasound limited Additional Pertinent history: Elevated LFTs COMPARISON STUDIES: none FINDINGS: Gallbladder: No gallstones. No wall thickening or pericholecystic fluid. Liver: 13.7 cm. Coarse heterogenous echogenicity. No focal liver lesions. Common duct: normal. Maximal size is 1.3 mm. Pancreas: Normal where visualized Right Kidney: 11 x 5.7 x 5.0 cm. No hydronephrosis. No cortical mass lesions Upper abdominal aorta and IVC: negative Ascites: none IMPRESSION: One. Negative ultrasound for acute intra-abdominal pathology. Specifically, no cholelithiasis or ch olecystitis change. Report Dictated By: Leoncio Yan MD at 09/20/2018 8:43 AM Report E-Signed By: Leoncio Yan MD at 09/20/2018 8:51 AM WSN:[id number]
[2018-09-20] MEDS: RIVAROXABAN 10 MG TAB PO SCH (09:05)
[2018-09-20] MEDS: RANITIDINE HCL 150 MG TAB PO SCH (09:05)
[2018-09-20] MEDS: CITALOPRAM HYDROBROM 20 MG TAB PO SCH (09:05)
[2018-09-20] MEDS: PANTOPRAZOLE SOD 40 MG TABEC PO SCH (09:05)
[2018-09-20] MEDS ORDERED: RIVA20TA PO (10:16)
--- NOTE | 2018-09-20 10:30 | Hospitalist Depart ---
Discharge Summary Reason for Hosp/Final Diag: (1) Atrial fibrillation Status: Acute Hospital Course & Plan: He presented with asymptomatic atrial fibrillation. He was previously in sinus rhythm by ECG on 07/24/18. His rates in the [facility] ER were from 60-120bpm, but dropped to the 40's with 10mg of IV diltiazem. This was stopped and he was not continued on any rate controlling medication. He did convert to sinus rhythm and stayed in sinus rhythm for the remainder of his stay. His echocardiogram is unremarkable. TSH is in normal range on replacement. We did start Xarelto 20mg daily for CVA prophylaxis. He was eating, drinking, tolerating activities without problem. He will follow up with Dr. Holt as an outpatient. (2) GERD (gastroesophageal reflux disease) Status: Chronic Hospital Course & Plan: He presented to the ER with esophageal spasm that eased with nitroglycerin and resolved with a GI cocktail. He is chronically on omeprazole and ranitidine. No changes were made at this time. (3) Depression, endogenous Status: Acute Hospital Course & Plan: Continue chronic Celexa. (4) Essential hypertension Status: Chronic Hospital Course & Plan: Hold chronic lisinopril. (5) Osteoarthritis Status: Acute Hospital Course & Plan: Continue chronic prn Flexeril and Vicodin. (6) Interstitial lung disease Status: Chronic Hospital Course & Plan: Chronically on O2. (7) Elevated alanine aminotransferase (ALT) level Status: Acute Hospital Course & Plan: Mild elevation with slight rise during his stay. No specific etiology found. Ultrasound of liver/GB was unremarkable. Levels were improving at the time of discharge. Viral hepatitis studies are still pending. He will need follow up lab in a couple of weeks to monitor. (8) Elevated serum aspartate aminotransferase level Status: Acute Hospital Course & Plan: See above. Departure Weight (Pounds): 204 Result Diagram: 09/19/1830909/20/18 0537 Item Value Date Time Albumin 4.5 g/dl 09/19/18 0310 Total Protein 8.4 g/dl H 09/19/18 031 B-Type Natriuretic Peptide 73 pg/ml 09/19/18 031 Troponin I < 0.012 ng/ml 09/19/18 031 Alkaline Phosphatase 103 U/L 09/19/18 031 Alanine Aminotransferase (ALT/SGPT) 151 U/L H 09/19/18 0310 Aspartate Amino Transf (AST/SGOT) 226 U/L H 09/19/18 0310 Total Bilirubin 0.8 mg/dl 09/19/18 0310 Calcium Level 9.3 mg/dl 09/19/18 0310 Random Glucose 135 mg/dl H 09/19/18 0310 Glomerular Filtration Rate Calc > 60.0 09/19/18 0310 Creatinine 1.10 mg/dl 09/19/18 0310 Blood Urea Nitrogen 22 mg/dl H 09/19/18 0310 Carbon Dioxide Level 25 mmol/L 09/19/18 0310 Potassium Level 4.1 mmol/L 09/19/18 0310 Chloride Level 99 mmol/L 09/19/18 0310 Sodium Level 136 mmol/L L 09/19/180 Troponin I < 0.012 ng/ml 09/19/18 0604 Thyroid Stimulating Hormone (TSH) 4.29 uIU/ml 09/19/18 0310 Albumin 3.6 g/dl 09/20/18 0537 Total Protein 6.7 g/dl 09/20/18 0537 Alkaline Phosphatase 103 U/L 09/20/18 0537 Alanine Aminotransferase (ALT/SGPT) 433 U/L H 09/20/18 0537 Aspartate Amino Transf (AST/SGOT) 303 U/L H 09/20/18 0537 Total Bilirubin 0.7 mg/dl 09/20/18 0537 Calcium Level 8.9 mg/dl 09/20/18 0537 Albumin 3.8 g/dl 09/19/18 1815 Total Protein 6.9 g/dl 09/19/18 1815 Total Creatine Kinase 104 U/L 09/19/18 1815 Alkaline Phosphatase 94 U/L 09/19/18 1815 Alanine Aminotransferase (ALT/SGPT) 477 U/L H 09/19/18 1815 Aspartate Amino Transf (AST/SGOT) 460 U/L H 09/19/18 1815 Calcium Level 8.7 mg/dl 09/19/185 Total Bilirubin 0.8 mg/dl 09/19/18 1815 Random Glucose 119 mg/dl H 09/19/181814 Glomerular Filtration Rate Calc > 60.0 09/19/181814 Creatinine 1.10 mg/dl 8/13/19 1815 Blood Urea Nitrogen 20 mg/dl 09/19/18 1815 Chloride Level 102 mmol/L 09/19/18 1815 Potassium Level 4.4 mmol/L 09/19/18 1815 Sodium Level 137 mmol/L 09/19/18 1815 Carbon Dioxide Level 26 mmol/L 09/19/18 1815 Sodium Level 138 mmol/L 09/19/18 1306 Potassium Level 4.4 mmol/L 09/19/18 1306 Chloride Level 103 mmol/L 09/19/18 1306 Carbon Dioxide Level 27 mmol/L 09/19/18 1306 Blood Urea Nitrogen 21 mg/dl 09/19/18 1306 Creatinine 1.10 mg/dl 09/19/18 1306 Glomerular Filtration Rate Calc > 60.0 09/19/18 1306 Random Glucose 105 mg/dl 09/19/18 1306 Calcium Level 9.1 mg/dl 09/19/18 1306 Total Bilirubin 1.0 mg/dl 09/19/18 1306 Aspartate Amino Transf (AST/SGOT) 583 U/L H 09/19/18 1306 Alanine Aminotransferase (ALT/SGPT) 509 U/L H 09/19/18 1306 Alkaline Phosphatase 100 U/L 09/19/18 1306 Total Protein 7.6 g/dl 09/19/18 1306 Albumin 4.3 g/dl 09/19/18 1306 Acetaminophen Level < 10 ug/ml 09/19/18 1815 Imaging PATIENT NAME: Deanna Person : 1940 MR: [id number] V: [id number] EXAM DATE: ORDERING PHYSICIAN: KASIE STYLES TECHNOLOGIST: Location: [facility] [place] Patient: Deanna Person : 1940 Visit/Account:[id number] Date of Sevice: 09/19/2018 AP CHEST 09/19/2018 3:33 AM. INDICATION: Chest Pain COMPARISON: 07/22/2018. FINDINGS: Lungs are well-expanded. There is no new consolidation. Diffuse chronic appearing interstitial markings similar to prior given differences in technique. No pleural effusion or pneumothorax. Heart size is normal. IMPRESSION: Chronic findings with no apparent acute abnormality. Report Dictated By: Jones Burton MD at 09/19/2018 3:47 AM Report E-Signed By: Jones Burton MD at 09/19/2018 3:48 AM WSN:[id number] NAME: Deanna Person : 1940 MR: [id number] V: [id number] EXAM DATE: [id number] ORDERING PHYSICIAN: KASEY OSBORN TECHNOLOGIST: Location: [facility] [place] Patient: Deanna Person : 1940 Visit/Account:[id number] Date of Sevice: 09/19/2018 LIVER HISTORY: elevated LFT LIVER EXAMINATION: Abdominal ultrasound limited Additional Pertinent history: Elevated LFTs COMPARISON STUDIES: none FINDINGS: Gallbladder: No gallstones. No wall thickening or pericholecystic fluid. Liver: 13.7 cm. Coarse heterogenous echogenicity. No focal liver lesions. Common duct: normal. Maximal size is 1.3 mm. Pancreas: Normal where visualized Right Kidney: 11 x 5.7 x 5.0 cm. No hydronephrosis. No cortical mass lesions Upper abdominal aorta and IVC: negative Ascites: none IMPRESSION: One. Negative ultrasound for acute intra-abdominal pathology. Specifically, no cholelithiasis or cholecystitis change. Report Dictated By: Leoncio Yan MD at 09/20/2018 8:43 AM Report E-Signed By: Leoncio Yan MD at 09/20/2018 8:51 AM WSN:[id number] EKG ATIENT NAME: DEANNA PERSON : [id number] MR: [id number] V: [id number] EXAM DATE: ORDERING PHYSICIAN: KASIE STYLES TECHNOLOGIST: Test Reason : CP REPEAT Blood Pressure : / mmHG Vent. Rate : 062 BPM Atrial Rate : 065 BPM P-R Int : 000 ms QRS Dur : 098 ms QT Int : 436 ms P-R-T Axes : 000 -33 -08 degrees QTc Int : 442 ms Atrial fibrillation Left axis deviation Non-specific T changes. When compared with ECG of 19-SEP-2018 03:16, Vent. rate has decreased BY 38 BPM QT has shortened Confirmed by VERONICA CADE ([id number]) on 09/19/2018 6:05:57 AM Referred By: STEPHANI Confirmed By:VERONICA CADE PATIENT NAME: DEANNA PERSON : [id number] MR: [id number] V: [id number] EXAM DATE: ORDERING PHYSICIAN: KASEY OSBORN TECHNOLOGIST: HC Test Reason : A FIB Blood Pressure : / mmHG Vent. Rate : 056 BPM Atrial Rate : 056 BPM P-R Int : 298 ms QRS Dur : 092 ms QT Int : 448 ms P-R-T Axes : 050 -29 -14 degrees QTc Int : 432 ms Sinus bradycardia with 1st degree AV block T inversion consistent with inferior ischemia vs normal variant Sinus rhythm has replaced atrial fibrillation Confirmed by KASEY OSBORN ([id number]) on 09/20/2018 6:48:19 AM Referred By: ANURAG Confirmed By:KASEY OSBORN Condition: Improved Discharge: Home, Self Care Follow-Up Labs: Other (CMP in 1-[address] Holt.) Time Spent: > 30 min Discharge Instructions Home Meds Active Scripts Rivaroxaban 20 Mg (XARELTO 20 MG) 20 Mg Tablet, 20 MG PO DAILY for 30 Days, #30 TAB 1 Refill Prov:GASTON CANCINO MD 09/20/18 Levothyroxine Sodium (LEVOTHYROXINE SODIUM) 25 Mcg Tablet, 25 MCG PO QDAY, #90 TAB 3 Refills Prov:ABDIFATAH HOLT MD 08/22/18 Cyclobenzaprine Hcl (CYCLOBENZAPRINE HCL) 5 Mg Tablet, 5 MG PO BID PRN for muscle spasm, #40 TAB 3 Refills Prov:ABDIFATAH HOLT MD 06/16/18 Hydrocodone Bit/Acetaminophen (HYDROCODON-ACETAMINOPHEN 5-325) 1 Each Tablet, 1 EACH PO Q6H PRN for PAIN, #100 TAB Prov:ABDIFATAH HOLT MD 06/16/18 Ranitidine Hcl (RANITIDINE HCL) 150 Mg Tablet, 1 TAB PO HS, #90 TAB 3 Refills Prov:ABDIFATAH HOLT MD 02/23/18 Omeprazole (OMEPRAZOLE) 20 Mg Capsule.dr, 1 CAP PO QDAY, #90 CAP 3 Refills TAKE ONE CAPSULE BY MOUTH ONCE A DAY Prov:ABDIAFTAH HOLT MD 01/25/18 Lisinopril (LISINOPRIL) 5 Mg Tablet, 1 TAB PO QDAY, #90 TAB 3 Refills Prov:ABDIFATAH HOLT MD 12/12/17 Citalopram Hydrobromide (CELEXA) 40 Mg Tablet, 40 MG PO QDAY, #90 TAB 3 Refills Prov:ABDIFATAH HOLT MD 08/24/17 Folic Acid (FOLIC ACID) 1 Mg Tablet, 1 MG PO QDAY, #30 TAB Prov:ABDIFATAH HOLT MD 01/12/17 Oxygen (OXYGEN) Inha, 2 L INH QDAY, #2 L Prov:ABDIFATAH HOLT MD 01/29/16 Reported Medications Albuterol Sulfate 90 Mcg/Act (PROAIR HFA 90 MCG/ACT) 8.5 Gm Hfa.aer.ad, 1-2 PUFF IH Q4H PRN for SHORTNESS OF BREATH, INHALER 09/19/18 Acetaminophen (TYLENOL EXTRA STRENGTH) 500 Mg Tablet, 500 MG PO BID PRN for PAIN, TAB 01/11/17 Lutein (LUTEIN) 20 Mg Tablet, 20 MG PO DAILY 03/29/14 Cholecalciferol (Vitamin D3) (VITAMIN D-3) 2,000 Unit Capsule, 2000 UNIT PO BID, CAPSULE 03/29/14 Glucosamine Sulfate 2KCL (GLUCOSAMINE) 1,000 Mg Tablet, 1500 MG PO DAILY 03/29/14 Discontinued Reported Medications Cyanocobalamin (Vitamin B-12) (B-12) 1,000 Mcg Tablet.er, 1000 MCG PO QODAY 02/20/18 Vitamin E Acetate (VITAMIN E) 1,000 Unit Capsule, 1000 UNIT PO DAILY, CAPSULE 03/29/14 Discontinued Scripts Cefuroxime Axetil (CEFUROXIME) 500 Mg Tablet, 500 MG PO BID for infection, #14 TAB Prov:DAVID CARTER DO 07/22/18 Follow up Referrals: Internal Medicine @ [facility] with ABDIFATAH HOLT MD Diet: Regular Activity: As Tolerated, No Exertion Special Instructions: Follow up with Dr. Holt in next 7-10 days. Return to [facility] ER if any problems. Continue home oxygen. Copies to: ABDIFATAH HOLT MD ; Venous Thromboembolism Antithrombotics Is Pt On Any Antithrombotics?: No GASTON CANCINO MD Sep 20, 2018 10:30
[2018-09-20 13:12] VITALS: Ht 175.3 cm; Wt 92.5 kg
[2018-09-21] MEDS ORDERED: CITA-157 PO (13:44)
== END 2018-09-20 10:17 | disposition home or self-care (01) ==
LOC: ER 03:31 → INTOOBSV 08:15 → MED 08:15
PROVIDERS: ADMIT Internal Medicine; ATTEND Internal Medicine
DX: I48.0 Paroxysmal atrial fibrillation (principal); K22.4 Dyskinesia of esophagus; K21.9 Gastro-esophageal reflux disease without esophagitis; F33.2 Major depressive disorder, recurrent severe without psychotic features; M19.90 Unspecified osteoarthritis, unspecified site; J84.9 Interstitial pulmonary disease, unspecified; Z99.81 Dependence on supplemental oxygen; R79.89 Other specified abnormal findings of blood chemistry; E03.9 Hypothyroidism, unspecified; I10 Essential (primary) hypertension; I44.0 Atrioventricular block, first degree; R00.1 Bradycardia, unspecified
CPT/HCPCS: 36415; 71045; 76705; 82550; 83880; 84443; 84484; 85025; 85610; 86704; 86706; 86708; 86709; 87340; 93005; 96361; 96374; 96375; 96376; 99284; A9270; C8929; C9113; G0378; G0472; G0480; J2270; J2405; J3490; J7030; Q9957; 80329; 82040; 82247; 82310; 82374; 82435; 82565; 82947; 84075; 84132; 84155; 84295; 84450; 84460; 84520; 86803

== ENCOUNTER → 2018-09-19 | Outpatient (CLI) | payer MEDICARE ==
[~2018-09-19] MED LIST changes: +ALBU8.5H IH; +CEFU500T10 PO; +RIVA20TA PO
[2018-09-20 13:12] VITALS: BMI 30.1
== END ==
LOC: AMB 02:53
PROVIDERS: ATTEND Nurse Practitioner
DX: R10.33 Periumbilical pain (principal); R07.9 Chest pain, unspecified
CPT/HCPCS: A0425; A0427

== ENCOUNTER → 2018-09-28 | Outpatient (CLI) | payer MEDICARE ==
[2018-09-20 13:12] VITALS: BMI 30.1
[~2018-09-28] MED LIST changes: +ALBU8.5H IH; +BUS5 PO; +ESCI20TA8 PO; +RIVA20TA PO
[2018-09-28 11:38] LABS: PLATELET COUNT, AUTOMATED 218 K/uL (150-450)
== END ==
LOC: LAB 10:06
PROVIDERS: ATTEND Internal Medicine
DX: I48.91 Unspecified atrial fibrillation (principal); E03.9 Hypothyroidism, unspecified; J84.9 Interstitial pulmonary disease, unspecified; K21.9 Gastro-esophageal reflux disease without esophagitis
CPT/HCPCS: 36415; 82040; 82247; 82310; 82374; 82435; 82565; 82947; 84075; 84132; 84155; 84295; 84439; 84443; 84450; 84460; 84520; 85025